=== PATIENT | male | born 2005 | race Caucasian/White ===

== ENCOUNTER 2024-09-20 19:21 | Emergency (ER) | payer OTHER, SELFPAY ==
[2024-09-20 19:31] VITALS: BP 131/82; PULSE 84; RESP 20; TEMP 36.6; O2SAT 98; BMI 22.4
--- NOTE | 2024-09-20 19:56 | CRLHL7_ITS ---
For Patients: As a result of the Cures Act, medical imaging exams and procedure reports are released immediately into your electronic medical record. You may view this report before your referring provider. If you have questions, please contact your health care provider. INDICATION: Cough, wheezing. TECHNIQUE: Chest 2 view(s) COMPARISON: None available. FINDINGS: Cardiomediastinal silhouette and pulmonary vasculature are normal. No focal consolidation. No layering pleural effusion. No pneumothorax. No acute osseous abnormality. IMPRESSION: No focal consolidation. Dictated by Sina Velasquez MD @ 09/20/2024 9:02:39 PM (Electronically Signed)
[2024-09-20] MEDS: IPRAT-ALBUT 0.5-2.5 MG/3 ML NEB 1 NEB IH (20:02)
--- OUTSIDE RECORDS SUMMARY | 2024-09-20 20:08 | XMS_ITS | Clinical Summary ---
Author Organization [facility] Address [address] [place] [address] Care Team Providers Care Community Health Representative Name Role Phone Establish, Need To MD Primary Care Provider [phone] Source Comments If you need additional information that is not available on Care Everywhere, please contact our Medical Records Department during business hours (Friday - Friday, 8 am - 5 pm) at . During nonbusiness hours, please contact our Trauma and Emergency Center at .[facility] Allergies No known active allergies Medications * Medications may not be up to date as of this document. Always verify current medications with the patient. No known medications Social History Tobacco Use Types Packs/Day Years Used Date Smoking Tobacco: Never Smokeless Tobacco: Never Tobacco Cessation:Counseling Given: Not Answered Sex and Gender Information Value Date Recorded Sex Assigned at Not on file Legal Sex Male 11:25 AM LIBRARY ASSOCIATE Gender Identity Not on file Sexual Orientation Not on file Obstetrics History Last Filed Vital Signs Vital Sign Reading Time Taken Comments Blood Pressure 140/68 05/12/2024 4:07 PM LIBRARY ASSOCIATE Pulse 50 05/12/2024 2:30 PM LIBRARY ASSOCIATE Temperature 36.6 C (97.9 F) 05/12/2024 2:28 PM LIBRARY ASSOCIATE Respiratory Rate 18 05/12/2024 4:07 PM LIBRARY ASSOCIATE Oxygen Saturation 99% 05/12/2024 4:07 PM LIBRARY ASSOCIATE Inhaled Oxygen Concentration - - Weight - - Height - - Body Mass Index - - Plan of Treatment Health Maintenance Due Date Last Done Comments DEPRESSION/ANXIETY PHQ4 2015 LIPID SCREEN 2021 WELLNESS VISIT 2021 PERTUSSIS 2022 COVID-19 Vaccine (3 - 4-25 season) 2024 11/10/2020, 10/20/2020 Influenza Vaccine (#1) 2024 06/21/2009, 2008 DTaP/Tdap/Td Vaccine (7 - Td or Tdap) 01/23/2025 01/23/2015, 08/23/2008, 08/23/2008, Additional history exists DIABETES SCREENING 05/12/2025 05/12/2024, 05/12/2024 RSV Vaccines (1 - 1-dose 75+ series) 2078 Hepatitis B Vaccine Completed 2003, 2003, 2003, Additional history exists POLIO (IPV) Vaccine Completed 10/27/2007, 2003, 2003, Additional history exists Pneumococcal Vaccine: Pediatrics (0 to 5 Years) and At-Risk Patients (6 to 49 Years) Aged Out 10/27/2007, 2003, 2003 No longer eligible based on patient's age to complete this topic HPV Vaccine Completed 12/13/2015, 04/25/2015 Procedures Procedure Name Priority Date/Time Associated Diagnosis Comments GLUCOSE; BLOOD BY GLUCOSE MONITORING DEVICE STAT 05/12/2024 2:40 PM LIBRARY ASSOCIATE from Last 3 Months or Most Recently Relevant to Health Maintenance Results * (ABNORMAL) POC LAB GLUCOSE-METER (05/12/2024 2:40 PM LIBRARY ASSOCIATE) GLUCOSE METER (POCT) 106(H) 70 - 99 mg/dl 05/12/2024 2:41 PM LIBRARY ASSOCIATE [facility] Blood 05/12/2024 2:40 PM LIBRARY ASSOCIATE 05/12/2024 2:41 PM LIBRARY ASSOCIATE Davide Brothers DO POINT OF CARE TESTING Final R esult [facility] [address] [place] [address] from Last 3 Months or Most Recently Relevant to Health Maintenance Insurance [facility] MEDICA[employer] Care Teams Community Health Representative Relationship Specialty Start Date End Date Establish, Need To, [address] [facility] [place], [place] [id number] 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
--- NOTE | 2024-09-20 20:13 | ED_ITS ---
HPI - SOB/Dyspnea General Date Seen: 09/20/24 Chief Complaint: Cough Stated Complaint: Shortness of breath, seating, coughing Time Seen by Provider: 09/20/24 19:47 Source: patient Mode of arrival: ambulatory Limitations: no limitations History of Present Illness HPI Narrative: Patient is the 19-year-old gentleman who presents here with coughing shortness of breath, some sweating he sometimes coughs so hard that he will throw up. History of a sinus infection, took approximately 5 days of the medications and then stop taking the antibiotics amoxicillin. [place] better but today feels wors e. Some mild congestion, and some wheezing. Never before had this, denies a history of any recurrent pneumonias asthma or other issues. [place] better when he was on the prednisone. He has now been off of this for approximately 10 days. No history of fevers chills, not coughing up any purulent sputum no exposure to tuberculosis, no travel history, goes to school in [place]. His girlfriend in [facility]. Reminds me that sometimes he coughs so hard that he had some diarrhea. Denies any leg swelling, denies any history of DVTs pulmonary emboli and does know what these are and tells me his family has no history of any blood dyscrasias. No recent significant travel history where he has been on a plane for significant amount of time. elicited complaint: shortness of breath Related Data Home Medications ?Medication ?Instructions ?Recorded ?Confirmed No Known Home Medications 09/20/24 09/20/24 Allergies Allergy/AdvReac Type Severity Reaction Status Date / Time No Known Drug Allergies Allergy Verified 09/20/24 19:33 Review of Systems Status of ROS: Reports: 10 or more systems reviewed and unremarkable except as noted in History and below [facility] Social History service: No Exam Narrative: Exam Narrative: On examination he speaking to me normally, his vital signs are reviewed and otherwise normal. Pupils equal round reactive to light there is no scleral icterus redness is TMs are normal his oropharynx is normal audible wheezing is noted on expiration in all his lung areas, he does not have any crackles, no pleuritic rubs, heart sounds no clicks murmurs or gallops, abdomen is soft there is no guarding no organomegaly skin reveals no petechiae rashes. Lower extremities reveal no swelling no pitting edema negative Homans sign. Const: Vital Signs, click to edit/add: Vital Signs - 24 hr 09/20/24 19:31 Temperature 97.9 F Pulse Rate [Pulse Oximeter] 84 Respiratory Rate 20 Blood Pressure [Ri ght Upper Arm] 131/82 Pulse Oximetry 98 Oxygen Delivery Me thod Room Air Documenting provider has reviewed patient's vital signs: yes Course Course ED Course: I had a long discussion with the patient he significantly better both with shortness of breath, and also his chest pain, after the 2nd nebulized treatment, we also did give him some ibuprofen some prednisone. I discussed with him that I think strongly that this is likely related all to his reactive airway disease, he also did take his antibiotic for the full course so there may be some residual stuff such as pleurisy or possibly pneumonia that were nice not seeing on his x-ray. I will give him some Zithromax to further cover him for that and a 5 day course of prednisone, along with an meter dose inhaler. I went over the fact that we could do a CT scan for this, but I am not sure to be really helpful for more information and he was not wanting to do this. I think it would be reasonable let him go home with mandatory follow-up in 48 hours with primary care or urgent care. Returning here if signs and symptoms of worsening which we went over in detail. Vital Signs Vital signs: Initial Vital Signs Temperature 97.9 F 09/20/24 19:31 Temperature Source Oral 09/20/24 19:31 Pulse Rate 84 09/20/24 19:31 Respiratory Rate 20 09/20/24 19:31 Blood Pressure 131/82 09/20/24 19:31 Blood Pressure Mean 98 09/20/24 19:31 Blood Pressure Position Sitting 09/20/24 19:31 Pulse Oximetry 98 09/20/24 19:31 Oxygen Delivery Method Room Air 09/20/24 19:31 Vital Signs Temperature 97.9 F 09/20/24 19:31 Pulse Rate 84 09/20/24 19:31 Respiratory Rate 20 09/20/24 19:31 Blood Pressure 131/82 09/20/24 19:31 Pulse Oximetry 98 09/20/24 19:31 Oxygen Delivery Method Room Air 09/20/24 19:31 Temperature 97.9 F 09/20/24 19:31 Pulse Rate 84 09/20/24 19:31 Respiratory Rate 20 09/20/24 19:31 Blood Pressure 131/82 09/20/24 19:31 Pulse Oximetry 98 09/20/24 19:31 Oxygen Delivery Method Room Air 09/20/24 19:31 Medications Administered Medications: Generic Name Dose Route Start Last Admin Trade Name Freq PRN Reason Stop Dose Admin Albuterol 2.5 mg 09/20/24 20:58 09/20/24 21:01 Albuterol Sulfate 2.5 Mg/3 Ml Vial.Neb NEB 09/20/24 20:59 2.5 mg ONCE ONE Administration Ibuprofen 800 mg 09/20/24 21:05 09/20/24 21:09 Ibuprofen 400 Mg Tablet PO 09/20/24 21:06 800 mg ONCE ONE Administration Prednisone 60 mg 09/20/24 21:24 09/20/24 21:36 Prednisone 20 Mg Tablet PO 09/20/24 21:25 60 mg ONCE ONE Administration Discontinued Medications Generic Name Dose Route Start Last Admin Trade Name Freq PRN Reason Stop Dose Admin Albuterol/Ipratropium 1 neb 09/20/24 19:56 09/20/24 20:02 Iprat-Albut 0.5-2.5 Mg/3 Ml Neb 09/20/24 19:57 1 neb ONCE ONE Administration MDM - SOB/Dyspnea MDM Narrative Medical decision making narrative: Life-threatening differential diagnosis includes occluded COPD exacerbation, pulmonary edema, acute coronary syndromes, pulmonary embolism, pneumonia, and pneumothorax. Other differential diagnosis considerations include asthma, bronchitis as well as other etiologies Medical Records Attestation: I reviewed the patient's medical records. Lab Data Attestation: I reviewed the patient's lab results. Labs: Lab Results 09/20/24 Range/Units 19:33 SARS-CoV-2 (PCR) Negative SARS-CoV-2 (Negative) Influenza Type A (PCR) Negative PCR FLU A (Negative) Influenza Type B (PCR) Negative PCR FLU B (Negative) RSV (PCR) Negative PCR RSV (Negative) Imaging Data Chest x-ray: Attestation: I have reviewed the pertinent imaging results. My impression: Negative chest x-ray Radiologist's impression: [address] [address] Diagnostic Imaging Report Patient: Marcial Childs MR#: [id number] : 2005 Acct:[id number] Loc: ED Service Date: 09/20/[address]: Ordering Physician: Chaparro Iglesias M.D. Date of Service: 09/20/24 Procedure(s): XR chest 2V Accession Number(s): [id number] cc: Provider,Not a Local; Chaparro Iglesias M.D.~ For Patients: As a result of the Cures Act, medical imaging exams and procedure reports are released immediately into your electronic medical record. You may view this report before your referring provider. If you have questions, please contact your health care provider. INDICATION: Cough, wheezing. TECHNIQUE: Chest 2 view(s) COMPARISON: None available. FINDINGS: Cardiomediastinal silhouette and pulmonary vasculature are normal. No focal consolidation. No layering pleural effusion. No pneumothorax. No acute osseous abnormality. IMPRESSION: No focal consolidation. Dictated by Sina Velasquez MD @ 09/20/2024 9:02:39 PM (Electronically Signed) Discharge Plan Discharge Clinical Impression: Asthma, Shortness of breath, Chest pain, Pleurisy Patient Disposition: Home, Self-Care Condition: Improved Instructions: Asthma (DC), Pleurisy (DC), How to Use a Peak Flow Meter (ED), How to Use a Metered-Dose Inhaler (DC), Noncardiac Chest Pain (ED), Wheezing (ED), Shortness of Breath (ED) Additional Instructions: Home,rest and medications as directed. Ibuprofen for the chest pain, use the inhalers every 4hrs, if you need it more often then return. I would suspect the breathing will really improve in the next couple of days. I do not think this is anything super serious such as a pulmonary embolism, or heart attack, asthma however can be really bad, and if it is worsening you need to come back. Mandatory follow up with urgent care or primary care in 48 hrs. Return if worsening condition. Activity Level: Light activity Discharge Diet: Regular Prescriptions: No Action No Known Home Medications Follow Up/Referrals: Provider,Not a Local [Primary Care Provider] - Stand Alone Forms: [employer] Info Instructions
[2024-09-20 20:19] LABS: PCR FLU A Negative PCR FLU A (Negative); PCR FLU B Negative PCR FLU B (Negative); PCR RSV Negative PCR RSV (Negative); SARS PCR* Negative SARS-CoV-2 (Negative)
[2024-09-20] MEDS: ALBUTEROL SULFATE 2.5 MG/3 ML VIAL.NEB NEB (21:01)
[2024-09-20] MEDS: IBUPROFEN 400 MG TABLET 800 MG PO (21:09)
[2024-09-20] MEDS: predniSONE 20 MG TABLET 60 MG PO (21:36)
== END 2024-09-20 22:00 | disposition home or self-care (01) ==
PROVIDERS: Emergency Provider Family Medicine
DX: J45.909 Unspecified asthma, uncomplicated (principal); R19.7 Diarrhea, unspecified; R09.1 Pleurisy
CPT/HCPCS: 71046; 87631; 94640; 99284; A9270; J7512